=== PATIENT | male | born 1995 | race African-American/Black ===

== ENCOUNTER 2021-07-30 08:23 | Emergency (ER) | payer OTHER ==
[~2021-07-30] VITALS: Ht 180.3 cm; Wt 93.0 kg
[2021-07-30] MEDS ORDERED: PROAIR HFA8.5 GM INH ×2 (08:43→09:46)
[2021-07-30] MEDS ORDERED: PREDNISONE 20 M20 M1 PO (09:46)
[2021-07-30 10:35] VITALS: BP 144/85
== END 2021-07-30 10:40 | disposition home or self-care (01) ==
LOC: ER 08:23
DX: J45.909 Unspecified asthma, uncomplicated (principal); Z79.51 Long term (current) use of inhaled steroids

== ENCOUNTER 2021-08-05 17:08 | Emergency (ER) | payer OTHER ==
[~2021-08-05] VITALS: Ht 170.2 cm; Wt 93.0 kg
--- NOTE | ~2021-08-05 | EMS ---
[address] [address] EMS Patient Care Report Name: Eldon Swanson Room #: DEP ANTONY Barnes#: [id number] Admission: 08/05/21 Attend Phys: Discharge: 08/05/21 Date of : [birth year] Report #: [id number] THIS REPORT FOR: //name// Report Transmitted: 08/06/2021 16:18 EMS Care Summary [place], [place]/[facility] Incident [id number] @ 08/05/2021 16:29 Incident Location [id number] [place] [address] Patient ELDON SWANSON Male, 25 Years 1995 Patient Address [id number] [place] [address] Patient History Asthma, Patient Allergies No known allergies, Patient Medications Albuterol, Chief Complaint dyspnea Disposition Transported No Lights/[place] Dispatch Reason Breathing Problem Transported To [facility] Narrative Dispatched to a hotel in regards to a respiratory distress. On arrival, I saw patient standing outside the entrance. Initial assessment revealed that patient was A&Ox4 and did not appear to be in respiratory distress. Patient's chief complaint was dyspnea. Patient stated that he has asthma and has had difficulty breathing since Wednesday. Patient also stated that he was at [address] [address] EMS Patient Care Report Name: Eldon Swanson Room #: DEP ANTONY Barnes#: [id number] Admission: 08/05/21 Attend Phys: Discharge: 08/05/21 Date of : [birth year] Report #: [id number] last Wednesday for an Asthma attack, and was released the same day. Physical assessment revealed that patient had wheezing lung sounds and diminished lower lung sounds. Patient was able to ambulate without assisted and was seated on our cot. Treatment rendered was obtaining a complete set of baseline vital signs including oxygen therapy via nebulizer, Albuterol and Atrovent nebulized treatment, established vascular access with a saline lock and administered Solu-Medrol. Patient was transported to [facility] and radio report was given en route. Trending revealed that there was a little improvement with breathing per patient. Patient care was transferred on arrival. Initial Vitals @16:50P: 120,R: 20,BP: 169/90,Pain: 0/10,GCS: 15,SpO2: 99,Revised Trauma: 12, @16:39P: 122,R: 20,BP: 211/96,Pain: 0/10,GCS: 15,CO: 9,SpO2: 96,Revised Trauma: 12, Assessments @16:54MENTAL:Person Oriented,Place Oriented,Event Oriented,Time Oriented,SKIN:HEENT:LUNG SOUNDS:ABDOMEN:PELVIS//GI:EXTREMITIES:PULSE:NEURO:No Abnormalities, Impression Acute Respiratory Distress (Dyspnea) Procedures @PTAALS Assessment Response: UnchangedSucceeded @16:40 Oxygen FlowRate: 10 Device: Nebulizer Response: UnchangedSucceeded @16:40 Albuterol - 2.5 Milligrams (mg) - Nebulized Response: Unchanged @16:41 Atrovent - 0.5 Milligrams (mg) - Nebulized Response: Improved @16:40 Albuterol - 2.5 Milligrams (mg) - Nebulized Response: Improved @16:53 IV Therapy - Saline Lock 10cc (20 ga) Site: Antecubital-Right Response: UnchangedSucceeded @16:54 Solu-Medrol - 125 Drops (gtts) - Intravenous (IV) Response: Unchanged Timeline [employer],ALS Assessment,Response: UnchangedSucceeded, 16:28,Call Received 16:28,Dispatch Notified 16:29,Dispatched 16:30,En Route 16:35,On Scene 16:35,At Patient 16:39,BP: 211/96 M,PULSE: 122,RR: 20 R,SPO2: 96 Ox,ETCO2: ,BG: ,PAIN: 0,GCS: 15, 16:40,Oxygen FlowRate: 10 Device: Nebulizer Response: UnchangedSucceeded, [facility] [address] [place] [address] EMS Patient Care Report Name: Eldon Swanson Room #: ELENI Barnes#: [id number] Admission: 08/05/21 Attend Phys: Discharge: 08/05/21 Date of : [birth year] Report #: [id number] 16:40,Albuterol - 2.5 Milligrams (mg) - Nebulized,Response: Unchanged 16:40,Albuterol - 2.5 Milligrams (mg) - Nebulized,Response: Improved 16:41,Atrovent - 0.5 Milligrams (mg) - Nebulized,Response: Improved 16:50,BP: 169/90 M,PULSE: 120,RR: 20 R,SPO2: 99 Ox,ETCO2: ,BG: ,PAIN: 0,GCS: 15, 16:53,IV Therapy - Saline Lock 10cc 20 ga Site: Antecubital-Right,Response: UnchangedSucceeded, 16:54,Depart Scene 16:54,Solu-Medrol - 125 Drops (gtts) - Intravenous (IV),Response: Unchanged 17:04,At Destination 17:05,Call Closed Disclaimer v1.1 Copyright 2021 [employer] This EMS Care Summary contains data elements from the applicable legal record (which may be displayed differently). It is designed to provide pertinent information for the following purposes: continuity of care, clinical quality, and state data reporting. The complete legal record is available to ED staff and administrators of the receiving hospital in [employer]'s Patient Tracker. All data is provided "as is."
--- NOTE | ~2021-08-05 | EMS ---
[address] [address] EMS Patient Care Report Name: Eldon Swanson Room #: DEP ANTONY Barnes#: [id number] Admission: 08/05/21 Attend Phys: Discharge: 08/05/21 Date of : [birth year] Report #: [id number] THIS REPORT FOR: //name// Report Transmitted: 08/06/2021 09:57 EMS Care Summary [place], [place]/[facility] Incident [id number] @ 08/05/2021 16:29 Incident Location [id number] [place] [address] Patient ELDON SWANSON Male, 25 Years 1995 Patient Address [id number] [place] [address] Patient History Asthma, Patient Allergies No known allergies, Patient Medications Albuterol, Chief Complaint dyspnea Disposition Transported No Lights/[place] Dispatch Reason Breathing Problem Transported To [facility] Narrative Dispatched to a hotel in regards to a respiratory distress. On arrival, I saw patient standing outside the entrance. Initial assessment revealed that patient was A&Ox4 and did not appear to be in respiratory distress. Patient's chief complaint was dyspnea. Patient stated that he has asthma and has had difficulty breathing since Wednesday. Patient also stated that he was at [address] [address] EMS Patient Care Report Name: Eldon Swanson Room #: DEP ANTONY Barnes#: [id number] Admission: 08/05/21 Attend Phys: Discharge: 08/05/21 Date of : [birth year] Report #: [id number] last Wednesday for an Asthma attack, and was released the same day. Physical assessment revealed that patient had wheezing lung sounds and diminished lower lung sounds. Patient was able to ambulate without assisted and was seated on our cot. Treatment rendered was obtaining a complete set of baseline vital signs including oxygen therapy via nebulizer, Albuterol and Atrovent nebulized treatment, established vascular access with a saline lock and administered Solu-Medrol. Patient was transported to [facility] and radio report was given en route. Trending revealed that there was a little improvement with breathing per patient. Patient care was transferred on arrival. Initial Vitals @16:50P: 120,R: 20,BP: 169/90,Pain: 0/10,GCS: 15,SpO2: 99,Revised Trauma: 12, @16:39P: 122,R: 20,BP: 211/96,Pain: 0/10,GCS: 15,CO: 9,SpO2: 96,Revised Trauma: 12, Assessments @16:54MENTAL:Person Oriented,Place Oriented,Event Oriented,Time Oriented,SKIN:HEENT:LUNG SOUNDS:ABDOMEN:PELVIS//GI:EXTREMITIES:PULSE:NEURO:No Abnormalities, Impression Acute Respiratory Distress (Dyspnea) Procedures @PTAALS Assessment Response: UnchangedSucceeded @16:40 Oxygen FlowRate: 10 Device: Nebulizer Response: UnchangedSucceeded @16:40 Albuterol - 2.5 Milligrams (mg) - Nebulized Response: Unchanged @16:41 Atrovent - 0.5 Milligrams (mg) - Nebulized Response: Improved @16:40 Albuterol - 2.5 Milligrams (mg) - Nebulized Response: Improved @16:53 IV Therapy - Saline Lock 10cc (20 ga) Site: Antecubital-Right Response: UnchangedSucceeded @16:54 Solu-Medrol - 125 Drops (gtts) - Intravenous (IV) Response: Unchanged Timeline [employer],ALS Assessment,Response: UnchangedSucceeded, 16:28,Call Received 16:28,Dispatch Notified 16:29,Dispatched 16:30,En Route 16:35,On Scene 16:35,At Patient 16:39,BP: 211/96 M,PULSE: 122,RR: 20 R,SPO2: 96 Ox,ETCO2: ,BG: ,PAIN: 0,GCS: 15, 16:40,Oxygen FlowRate: 10 Device: Nebulizer Response: UnchangedSucceeded, [facility] [address] [place] [address] EMS Patient Care Report Name: Eldon Swanson Room #: ELENI Barnes#: [id number] Admission: 08/05/21 Attend Phys: Discharge: 08/05/21 Date of : [birth year] Report #: [id number] 16:40,Albuterol - 2.5 Milligrams (mg) - Nebulized,Response: Unchanged 16:40,Albuterol - 2.5 Milligrams (mg) - Nebulized,Response: Improved 16:41,Atrovent - 0.5 Milligrams (mg) - Nebulized,Response: Improved 16:50,BP: 169/90 M,PULSE: 120,RR: 20 R,SPO2: 99 Ox,ETCO2: ,BG: ,PAIN: 0,GCS: 15, 16:53,IV Therapy - Saline Lock 10cc 20 ga Site: Antecubital-Right,Response: UnchangedSucceeded, 16:54,Depart Scene 16:54,Solu-Medrol - 125 Drops (gtts) - Intravenous (IV),Response: Unchanged 17:04,At Destination 17:05,Call Closed Disclaimer v1.1 Copyright 2021 [employer] This EMS Care Summary contains data elements from the applicable legal record (which may be displayed differently). It is designed to provide pertinent information for the following purposes: continuity of care, clinical quality, and state data reporting. The complete legal record is available to ED staff and administrators of the receiving hospital in [employer]'s Patient Tracker. All data is provided "as is."
[~2021-08-05 17:08] MED LIST: PREDNISONE 20 M20 M1 PO; PROAIR HFA8.5 GM INH
[2021-08-05 17:50] LABS: HEMATOCRIT 45.1 % (42.0-52.0); HEMOGLOBIN 15.7 gm/dL (14.0-18.0); MCH 28.6 pg (26.0-34.0); MCHC 34.9 g/dL (28.0-37.0); PLATELET COUNT 204 thou/uL (150-400); RDW 14.7 % (10.5-14.5); WBC 7.7 thou/uL (4.0-11.0)
[2021-08-05 18:01] LABS: POTASSIUM 3.3 mmol/L (3.5-5.1)
[2021-08-05 18:08] LABS: ALBUMIN 3.8 g/dL (3.4-5.0); TOTAL BILIRUBIN 1.2 mg/dL (0.2-1.0); TOTAL PROTEIN 7.2 g/dL (6.4-8.2)
[2021-08-05 18:46] LABS: ABSOLUTE NEUTROPHILS 2.2 thou/uL (1.4-8.2)
[2021-08-05] MEDS ORDERED: PREDNISONE 10 M10 MG PO (19:02)
[2021-08-05] MEDS ORDERED: PROAIR HFA8.5 GM INH (19:02)
[2021-08-05 19:13] VITALS: BP 139/97
--- NOTE | 2021-08-06 11:30 | EKG ---
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
== END 2021-08-05 19:14 | disposition home or self-care (01) ==
LOC: ER 17:08
PROVIDERS: Student in an Organized Health Care Education/Training Program
DX: R06.02 Shortness of breath (principal); J45.909 Unspecified asthma, uncomplicated; Z79.51 Long term (current) use of inhaled steroids